=== PATIENT | male | born 1980 | race African-American/Black ===

== ENCOUNTER 2024-05-13 22:50 | Emergency (ER) | payer OTHER, SELFPAY ==
--- NOTE | ~2024-05-13 | XR_ITS ---
XR foot LT 2V 05/14/2024 02:14 INDICATION: Status post removal a splinter PROCEDURE: 3 views left foot COMPARISON: No prior studies for comparison. FINDINGS: Fracture, dislocation or subluxation is not identified. The soft tissues appear within norm al limits. No foreign bodies are identified. IMPRESSION: 1: NO ACUTE BONE OR JOINT ABNORMALITY IDENTIFIED. Reviewed, dictated and finalized at location B.
[2024-05-13 22:55] VITALS: BP 135/82; PULSE 58; RESP 14; TEMP 36.7; O2SAT 100
[2024-05-14] MEDS: TETANUS,DIPHTHERIA,AC PERTUSSIS ADULT (0.5 ML) BOOSTRIX IM (02:10)
[2024-05-14 02:15] VITALS: BP 108/78; PULSE 54; RESP 18; O2SAT 99
--- NOTE | 2024-05-14 02:22 | ED.SKABFB ---
HPI - Skin/Abscess/Foreign Bdy General Chief complaint: Skin/Abscess/Foreign Body Stated complaint: splinter Time Seen by Provider: 05/14/24 01:23 Source: patient Mode of arrival: ambulatory Limitations: no limitations History of Present Illness HPI narrative: this is a 44-year-old male that presents to the emergency department for a splinter in his left foot. Reports he got it caught on a Pallet at work. He was unable to remove the splinter which prompted him to be seen. He is not up-to-date on tetanus. Denies decreased range of motion or numbness. Related Data Allergies Allergy/AdvReac Type Severity Reaction Status Date / Time milk AdvReac Flatulence Verified 05/14/24 01:27 Review of Systems Review of Systems: CONSTITUTIONAL: Denies fever NEUROLOGIC: Denies numbness All systems reviewed & are unremarkable except as noted in HPI and below PMFSH Past Medical History Medical History (Updated 05/14/24 @ 02:27 by Mya Hills PA-C) No active medical problems Social History Social History (Updated 05/14/24 @ 02:23 by Mya Hills PA-C) Smoking status: Never smoker Exam Narrative: GENERAL: Well-appearing, well-nourished, and in no acute distress. HEAD: Normocephalic, atraumatic. EYES: EOMI. EXTREMITIES: Normal range of motion. No edema. Large splinter in the dorsal surface of the left foot over the 1st MTP joint. Normal DP pulse. Normal sensation SKIN: Warm, dry, no rash. NEURO: No focal deficits. Alert and oriented x3. PSYCH: Normal mood and affect Course Course Emergency Course: Patient agrees with plan of care Vital Signs Vital signs: Vital Signs Temperature 98.1 F 05/13/24 22:55 Pulse Rate 58 L 05/13/24 22:55 Respiratory Rate 14 05/13/24 22:55 Blood Pressure 135/82 05/13/24 22:55 Pulse Oximetry 100 05/13/24 22:55 Oxygen Delivery Room Air 05/13/24 22:55 Temperature 98.1 F 05/13/24 22:55 Pulse Rate 54 L 05/14/24 02:15 Respiratory Rate 18 05/14/24 02:15 Blood Pressure 108/78 05/14/24 02:15 Pulse Oximetry 99 05/14/24 02:15 Oxygen Delivery Room Air 05/13/24 22:55 Procedures Foreign Body Removal Foreign Body #1: Foreign Body Removal Date: 05/14/24 Foreign Body Removal Time: 02:25 Site: left Description of foreign body: other (splinter) Sedation/Analgesia: other (1% lidocaine with epi, 1cc) Technique: removal with forceps Confirmed by:: direct visualization Complications: none Post-procedure exam: awake, alert Neurovascular: normal capillary fill and no change from pre-procedure MDM - Skin/Abscess/Foreign Bdy MDM Narrative Medical decision making narrative: patient presents to the emergency department for a splinter in his left foot. This was successfully removed. Wound was irrigated. He was updated on tetanus. Will be started on prophylactic antibiotic. He is to follow up with primary provider. He was given warnings to return to the ER Differential Diagnosis Differential diagnosis: Likely other (foreign body, laceration) Imaging Data My impression: Left foot x-ray: no foreign body Critical Care Time Critical Care Time Critical Care Time: No Discharge Plan Discharge Clinical Impression: Foreign body in foot Qualifiers: Encounter type: initial encounter Laterality: left Qualified Code(s): S90.852A - Superficial foreign body, left foot, initial encounter Patient Disposition: Home, Self-Care Condition: Stable Instructions: Antibiotic Form, Soft Tissue Foreign Body (ED) Additional Instructions: Return to the emergency department if you experience fever, redness or swelling of your wound, abnormal drainage from your wound, or any other symptoms that are concerning to you. Apply antibiotic ointment daily. Do not soak the wound. Clean with mild soap and water daily. Take oral antibiotic as prescribed Follow-up with your primary care doctor for
== END 2024-05-14 02:46 | disposition home or self-care (01) ==
LOC: ANHED 05-14 02:42
PROVIDERS: Emergency Provider Physician Assistant
DX: S90.852A Superficial foreign body, left foot, initial encounter (principal); Z23 Encounter for immunization; W45.8XXA Other foreign body or object entering through skin, initial encounter
CPT/HCPCS: 73620; 90471; 90715; 99283